=== PATIENT | female | born 1975 | race Caucasian/White ===

== ENCOUNTER 2019-02-12 18:43 | Emergency (ER) | payer SELFPAY ==
[2019-02-12] MEDS ORDERED: Sodium Chloride 0.9% 1000 ML 1,000 ML IV STA ×2 (18:47→19:01)
[2019-02-12] MEDS ORDERED: Hydromorphone 1 mg/ml Ampule IV ONE (18:47)
[2019-02-12] MEDS ORDERED: BENADRYL 50 MG/ML IV ONE ×2 (18:47→19:02)
[2019-02-12] MEDS ORDERED: Hydromorphone 1 mg/ml Ampule ONE (18:58)
[2019-02-12] MEDS ORDERED: BENADRYL 50 MG/ML ONE (18:58)
[2019-02-12] MEDS ORDERED: Sodium Chloride 0.9% 1000 ML 1,000 ML ONE ×2 (18:58→20:09)
--- NOTE | 2019-02-12 19:03 | ERPHSYRPT ---
- History of Present Illness Time Seen by Provider: 02/12/19 18:50 Historian: patient Exam Limitations: no limitations Patient Subjective Stated Complaint: Pt states "For the past two hours I am having severe abdominal pain around my belly button." Triage Nursing Assessment: Pt presented alert and oriented X 3, skin pwd. Pt ambulates with an upright steady gait, able to speak in clear full sentences. Pt in no apparent respiratory distress. Physician History: Sudden onset of periumbilical abdominal pain for the past two hours. No specific trigger. She states he has a history of Crohn's disease. Timing/Duration: today, hour(s) (2) Activities at Onset: none Quality: stabbing Abdominal Pain Onset Location: periumbilical Pain Radiation: RUQ Severity of Pain-Max: severe Severity of Pain-Current: severe Modifying Factors: Improves With: nothing Associated Symptoms: denies symptoms, No back, No chest pain, No diaphoresis, No diarrhea, No fever/chills, No fatigue, No headache, No heartburn, No loss of appetite, No nausea, No neck pain, No rash, No shortness of breath, No syncope, No vomiting, No weakness Previous symptoms: different symptoms (pain sometimes feels this way with Crohn' s Disease), no recent treatment Allergies/Adverse Reactions: clindamycin Allergy (Verified 10/07/14 13:10) iodine Allergy (Verified 02/12/19 20:23) Hives ketorolac [From Toradol] Allergy (Verified 02/12/19 20:23) Penicillins Allergy (Verified 10/07/14 13:10) Home Medications: Dicyclomine HCl [Bentyl] 20 mg PO DAILY 10/07/14 [History] Hx Tetanus, Diphtheria Vaccination/Date Given: No Hx Influenza Vaccination/Date Given: No Hx Pneumococcal Vaccination/Date Given: No Immunizations Up to Date: Yes - Review of Systems Constitutional: No Fever, No Chills, No Fatigue Eyes: No Eye Pain, No Vision Changes Ears, Nose, & Throat: No Mouth Pain, No Mouth Swelling, No Throat Pain, No Painful Swallowing Respiratory: No Cough, No Dyspnea Cardiac: No Chest Pain, No Palpitations, No Syncope Abdominal/Gastrointestinal: Abdominal Pain, No Nausea, No Vomiting, No Hematemesis, No Hematochezia, No Melena Genitourinary Symptoms: No Dysuria, No Frequency, No Hematuria, No Flank Pain Musculoskeletal: No Arthralgias, No Back Pain, No Neck Pain, No Myalgias Skin: No Pruritis Neurological: No Focal Weakness, No Lethargy, No Parasthesia, No Sensory Changes Psychological: No Anxiety Endocrine: No Excessive Sweating Hematologic/Lymphatic: No Easy Bleeding, No Easy Bruising All Other Systems: Reviewed and Negative - Past Medical History Pertinent Past Medical History: Yes GI Medical History: Crohns Disease Other Medical History: ANALI SYNDROME - Past Surgical History Past Surgical History: Yes Female Surgical History: Tubal Ligation Other Surgical History: D/C X4. EXP LAP - Social History Smoking Status: Current every day smoker How long have you smoked: years Exposure to second hand smoke: Yes Drug Use: none Patient Lives Alone: No - Female History Hx Last Menstrual Period: 01/26/2019 Hx Now: No (tubal) - Nursing Vital Signs Nursing Vital Signs: Initial Vital Signs Temperature 97.7 F 02/12/19 18:50 Pulse Rate 127 H 02/12/19 18:50 Respiratory Rate 20 02/12/19 18:50 Blood Pressure 181/109 02/12/19 18:50 O2 Sat by Pulse Oximetry 100 02/12/19 18:50 Pain Scale Pain Intensity 9 - Physical Exam General Appearance: no apparent distress Eye Exam: PERRL/EOMI, eyes nml inspection, No scleral icterus, No pale conjunctivae Ears, Nose, Throat Exam: pharynx normal, moist mucous membranes Neck Exam: normal inspection, non-tender, supple, full range of motion, No meningismus, No Brudzinski, No lymphadenopathy Respiratory Exam: normal breath sounds, lungs clear, airway intact, No chest tenderness, No respiratory distress, No diminished breath sounds, No accessory muscle use, No prolonged expirations, No crackles/rales, No rhonchi, No wheezing , No stridor Cardiovascular Exam: regular rate/rhythm, normal heart sounds, normal peripheral pulses, capillary refill <2 sec Gastrointestinal/Abdomen Exam: soft, normal bowel sounds, No tenderness, No distention, No mass, No guarding, No rebound Extremity Exam: normal inspection, normal range of motion, pelvis stable, No calf tenderness, No patrick's sign, No pedal edema Neurologic Exam: alert, oriented x 3, cooperative, 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 Remaining abdomen and pelvis negative.) Ordered Tests: Active Orders 24 hr Category Date Time Status EKG-ER Only STAT Care 02/12/19 18:47 Active IV Insertion STAT Care 02/12/19 18:47 Active NPO (ED) STAT Care 02/12/19 18:47 Active ABDOMEN AND PELVIS W/0 CONTRAS [CT] Stat Exams 02/12/19 19:32 Taken AMYLASE Stat Lab 02/12/19 19:15 Completed CBC W DIFF Stat Lab 02/12/19 19:15 Completed CMP Stat Lab 02/12/19 19:15 Completed CULTURE,URINE Stat Lab 02/12/19 19:45 Received HCG QUALITATIVE,SERUM Stat Lab 02/12/19 19:15 Completed LIPASE Stat Lab 02/12/19 19:15 Completed Lactic Acid Stat Lab 02/12/19 19:00 Completed Lactic Acid Stat Lab 02/12/19 21:23 Completed TROPONIN Q3H Lab 02/12/19 19:15 Completed TROPONIN Q3H Lab 02/12/19 22:00 Ordered TROPONIN Q3H Lab 02/13/19 01:00 Ordered TROPONIN Q3H Lab 02/13/19 04:00 Ordered TROPONIN Q3H Lab 02/13/19 07:00 Ordered UA W/RFX UR CULTURE Stat Lab 02/12/19 19:45 Completed Urine Triage Profile Stat Lab 02/12/19 19:30 Completed Medication Summary Discontinued Medications Generic Name Dose Route Start Last Admin Trade Name Freq PRN Reason Stop Dose Admin Diphenhydramine HCl 25 mg 02/12/19 18:47 02/12/19 19:05 Benadryl 50 Mg/Ml IV 02/12/19 18:48 Not Given STAT ONE Diphenhydramine HCl Confirm 02/12/19 18:58 Benadryl 50 Mg/Ml Administered 02/12/19 18:59 Dose 50 mg .ROUTE .STK-MED ONE Diphenhydramine HCl 50 mg 02/12/19 19:02 02/12/19 19:06 Benadryl 50 Mg/Ml IV 02/12/19 19:03 50 mg STAT ONE Administration Hydromorphone HCl 1 mg 02/12/19 18:47 02/12/19 19:06 Hydromorphone 1 Mg/Ml Ampule IV 02/12/19 18:48 1 mg STAT ONE Administration Hydromorphone HCl Confirm 02/12/19 18:58 Hydromorphone 1 Mg/Ml Ampule Administered 02/12/19 18:59 Dose 1 mg .ROUTE .STK-MED ONE Sodium Chloride 1,000 mls @ 999 mls/hr 02/12/19 18:47 02/12/19 19:06 Sodium Chloride 0.9% 1000 Ml IV 02/12/19 19:47 999 mls/hr .Q1H1M STA Administration Sodium Chloride Confirm 02/12/19 18:58 Sodium Chloride 0.9% 1000 Ml Administered 02/12/19 18:59 Dose 1,000 mls @ ud .ROUTE .STK-MED ONE Sodium Chloride 1,000 mls @ 999 mls/hr 02/12/19 19:01 02/12/19 20:11 Sodium Chloride 0.9% 1000 Ml IV 02/12/19 20:01 999 mls/hr .Q1H1M STA Administration Sodium Chloride Confirm 02/12/19 20:09 Sodium Chloride 0.9% 1000 Ml Administered 02/12/19 20:10 Dose 1,000 mls @ ud .ROUTE .STK-MED ONE Morphine Sulfate 4 mg 02/12/19 21:05 02/12/19 21:11 Morphine Sulfate 4 Mg Inj IV 02/12/19 21:06 4 mg STAT ONE Administration Morphine Sulfate Confirm 02/12/19 21:09 Morphine Sulfate 4 Mg Inj Administered 02/12/19 21:10 Dose 4 mg .ROUTE .STK-MED ONE Ondansetron HCl 4 mg 02/12/19 21:05 02/12/19 21:11 Zofran 4 Mg/2 Ml Vial IV 02/12/19 21:06 4 mg STAT ONE Administration Ondansetron HCl Confirm 02/12/19 21:09 Zofran 4 Mg/2 Ml Vial Administered 02/12/19 21:10 Dose 4 mg .ROUTE .STK-MED ONE Lab/Rad Data: Laboratory Result Diagrams 02/12/19 19:15 02/12/19 19:15 Laboratory Results 02/12/19 02/12/19 02/12/19 Range/Units 21:23 19:45 19:30 WBC (4.0-10.5) K/mm3 RBC (4.1-5.4) M/mm3 Hgb (12.0-16.0) gm/dl Hct (35-47) % MCV (78-100) fl MCH (26-32) pg MCHC (32-36) g/dl RDW (11.5-14.0) % Plt Count (150-450) K/mm3 MPV (6-9.5) fl Gran % (36.0-66.0) % Eos # (Auto) (0-0.5) Absolute Lymphs (auto) (1.0-4.6) Absolute Monos (auto) (0.0-1.3) Lymphocytes % (24.0-44.0) % Monocytes % (0.0-12.0) % Eosinophils % (0.00-5.0) % Basophils % (0.0-0.4) % Absolute Granulocytes (1.4-6.9) Basophils # (0-0.4) Sodium (137-145) mmol/L Potassium (3.5-5.1) mmol/L Chloride (98-107) mmol/L Carbon Dioxide (22-30) mmol/L Anion Gap (5-15) MEQ/L BUN (7-17) mg/dL Creatinine (0.52-1.04) mg/dL Estimated GFR ML/MIN Glucose (74-106) mg/dL Lactic Acid 1.2 (0.4-2.0) Calcium (8.4-10.2) mg/dL Total Bilirubin (0.2-1.3) mg/dL AST (14-36) U/L ALT (0-35) U/L Alkaline Phosphatase (38-126) U/L Troponin I (0.000-0.034) ng/mL Serum Total Protein (6.3-8.2) g/dL Albumin (3.5-5.0) g/dL Amylase (30-110) U/L Lipase (23-300) U/L Serum , Qual (Negative) Urine Color PINK (YELLOW) Urine Appearance CLOUDY (CLEAR) Urine pH 8.0 (5-6) Ur Specific [place] 1.017 (1.005-1.025) Urine Protein 100 (Negative) Urine Ketones NEGATIVE (NEGATIVE) Urine Blood LARGE (0-5) Ranjith/ul Urine Nitrite NEGATIVE (NEGATIVE) Urine Bilirubin NEGATIVE (NEGATIVE) Urine Urobilinogen NEGATIVE (0-1) mg/dL Ur Leukocyte Esterase TRACE (NEGATIVE) Urine WBC (Auto) 26-50 (0-5) /HPF Urine RBC (Auto) 6-10 (0-2) /HPF U Epithel Cells (Auto) FEW (FEW) /HPF Urine Bacteria (Auto) FEW (NEGATIVE) /HPF Urine Mucus (Auto) SLIGHT (NEGATIVE) /HPF Urine Yeast (Budding) Rare (NEGATIVE) /HPF Urine Culture Reflexed YES (NO) Urine Glucose NEGATIVE (NEGATIVE) mg/dL Urine Opiates Level POSITIVE (NEGATIVE) Ur Methadone NEGATIVE (NEGATIVE) Urine Barbiturates NEGATIVE (NEGATIVE) Ur Phencyclidine (PCP) NEGATIVE (NEGATIVE) Urine Amphetamine NEGATIVE (NEGATIVE) U Benzodiazepine Level POSITIVE (NEGATIVE) Urine Cocaine NEGATIVE (NEGATIVE) Urine Marijuana (THC) NEGATIVE (NEGATIVE) 02/12/19 02/12/19 02/12/19 Range/Units 19:15 19:15 19:15 WBC (4.0-10.5) K/mm3 RBC (4.1-5.4) M/mm3 Hgb (12.0-16.0) gm/dl Hct (35-47) % MCV (78-100) fl MCH (26-32) pg MCHC (32-36) g/dl RDW (11.5-14.0) % Plt Count (150-450) K/mm3 MPV (6-9.5) fl Gran % (36.0-66.0) % Eos # (Auto) (0-0.5) Absolute Lymphs (auto) (1.0-4.6) Absolute Monos (auto) (0.0-1.3) Lymphocytes % (24.0-44.0) % Monocytes % (0.0-12.0) % Eosinophils % (0.00-5.0) % Basophils % (0.0-0.4) % Absolute Granulocytes (1.4-6.9) Basophils # (0-0.4) Sodium 141 (137-145) mmol/L Potassium 3.9 (3.5-5.1) mmol/L Chloride 108 H (98-107) mmol/L Carbon Dioxide 20 L (22-30) mmol/L Anion Gap 17.5 H (5-15) MEQ/L BUN 10 (7-17) mg/dL Creatinine 0.43 L (0.52-1.04) mg/dL Estimated GFR > 60.0 ML/MIN Glucose 103 (74-106) mg/dL Lactic Acid (0.4-2.0) Calcium 9.6 (8.4-10.2) mg/dL Total Bilirubin 0.50 (0.2-1.3) mg/dL AST 86 H (14-36) U/L ALT 63 H (0-35) U/L Alkaline Phosphatase 98 (38-126) U/L Troponin I < 0.012 (0.000-0.034) ng/mL Serum Total Protein 7.7 (6.3-8.2) g/dL Albumin 4.0 (3.5-5.0) g/dL Amylase 101 (30-110) U/L Lipase 199 (23-300) U/L Serum , Qual NEGATIVE (Negative) Urine Color (YELLOW) Urine Appearance (CLEAR) Urine pH (5-6) Ur Specific [place] (1.005-1.025) Urine Protein (Negative) Urine Ketones (NEGATIVE) Urine Blood (0-5) Ranjith/ul Urine Nitrite (NEGATIVE) Urine Bilirubin (NEGATIVE) Urine Urobilinogen (0-1) mg/dL Ur Leukocyte Esterase (NEGATIVE) Urine WBC (Auto) (0-5) /HPF Urine RBC (Auto) (0-2) /HPF U Epithel Cells (Auto) (FEW) /HPF Urine Bacteria (Auto) (NEGATIVE) /HPF Urine Mucus (Auto) (NEGATIVE) /HPF Urine Yeast (Budding) (NEGATIVE) /HPF Urine Culture Reflexed (NO) Urine Glucose (NEGATIVE) mg/dL Urine Opiates Level (NEGATIVE) Ur Methadone (NEGATIVE) Urine Barbiturates (NEGATIVE) Ur Phencyclidine (PCP) (NEGATIVE) Urine Amphetamine (NEGATIVE) U Benzodiazepine Level (NEGATIVE) Urine Cocaine (NEGATIVE) Urine Marijuana (THC) (NEGATIVE) 02/12/19 02/12/19 Range/Units 19:15 19:00 WBC 13.9 H (4.0-10.5) K/mm3 RBC 4.14 (4.1-5.4) M/mm3 Hgb 11.9 L (12.0-16.0) gm/dl Hct 37.8 (35-47) % MCV 91.3 (78-100) fl MCH 28.7 (26-32) pg MCHC 31.5 L (32-36) g/dl RDW 16.3 H (11.5-14.0) % Plt Count 255 (150-450) K/mm3 MPV 9.5 (6-9.5) fl Gran % 68.4 H (36.0-66.0) % Eos # (Auto) 0.31 (0-0.5) Absolute Lymphs (auto) 2.57 (1.0-4.6) Absolute Monos (auto) 1.46 H (0.0-1.3) Lymphocytes % 18.5 L (24.0-44.0) % Monocytes % 10.5 (0.0-12.0) % Eosinophils % 2.2 (0.00-5.0) % Basophils % 0.4 (0.0-0.4) % Absolute Granulocytes 9.48 H (1.4-6.9) Basophils # 0.05 (0-0.4) Sodium (137-145) mmol/L Potassium (3.5-5.1) mmol/L Chloride (98-107) mmol/L Carbon Dioxide (22-30) mmol/L Anion Gap (5-15) MEQ/L BUN (7-17) mg/dL Creatinine (0.52-1.04) mg/dL Estimated GFR ML/MIN Glucose (74-106) mg/dL Lactic Acid 2.8 H (0.4-2.0) Calcium (8.4-10.2) mg/dL Total Bilirubin (0.2-1.3) mg/dL AST (14-36) U/L ALT (0-35) U/L Alkaline Phosphatase (38-126) U/L Troponin I (0.000-0.034) ng/mL Serum Total Protein (6.3-8.2) g/dL Albumin (3.5-5.0) g/dL Amylase (30-110) U/L Lipase (23-300) U/L Serum , Qual (Negative) Urine Color (YELLOW) Urine Appearance (CLEAR) Urine pH (5-6) Ur Specific [place] (1.005-1.025) Urine Protein (Negative) Urine Ketones (NEGATIVE) Urine Blood (0-5) Ranjith/ul Urine Nitrite (NEGATIVE) Urine Bilirubin (NEGATIVE) Urine Urobilinogen (0-1) mg/dL Ur Leukocyte Esterase (NEGATIVE) Urine WBC (Auto) (0-5) /HPF Urine RBC (Auto) (0-2) /HPF U Epithel Cells (Auto) (FEW) /HPF Urine Bacteria (Auto) (NEGATIVE) /HPF Urine Mucus (Auto) (NEGATIVE) /HPF Urine Yeast (Budding) (NEGATIVE) /HPF Urine Culture Reflexed (NO) Urine Glucose (NEGATIVE) mg/dL Urine Opiates Level (NEGATIVE) Ur Methadone (NEGATIVE) Urine Barbiturates (NEGATIVE) Ur Phencyclidine (PCP) (NEGATIVE) Urine Amphetamine (NEGATIVE) U Benzodiazepine Level (NEGATIVE) Urine Cocaine (NEGATIVE) Urine Marijuana (THC) (NEGATIVE) - Progress Progress: improved Progress Note: 02/12/19 21:06 Pain and nausea have returned as symptoms resolved after first doses of pain and anti-emetic. 02/12/19 21:34 Pain has significant improved with no further nausea. Patient had no pain on repeat abdominal examination with negative CVA tenderness bilaterally. Lactic acid improved after IV hydration. Pulse is 98. 02/12/19 21:44 Patient has no specific etiology that requires immediate evaluation by general surgery, gynecologic surgery or any inpatient admission for further monitoring at this time. Patient will be discharged home with follow up in the morning of 02/13/2019 with her physician to determine need for further imaging studies or specialist referral. Counseled pt/family regarding: lab results, diagnosis, need for follow-up, rad results - Departure Departure Disposition: Home Clinical Impression: Periumbilical abdominal pain, Elevated blood pressure reading without diagnosis of hypertension Condition: Good Critical Care Time: No Referrals: NAVJOT LEE [Primary Care Provider] - 02/13/19 Instructions: DASH Diet, Acute Abdomen (Belly Pain), Adult (DC) Additional Instructions: your EKG, lab work, and CT scan of the abdomen and pelvis did not show a reason why you're having a pain around your bellybutton (umbilical area). Return immediately back to the assisted if pain localizes, is worse, new fever, new vomiting, new back pain, or any other concerning signs or symptoms that were not present at the age return visit for immediate reevaluation in the emergency department. It is important to follow up with your physician in the morning of 02/13/2019 to discuss if you need another imaging study such as a colonoscopy to determine the cause of your abdominal pain due to your Crohn's disease history. Prescriptions: Hydroxyzine HCl 25 mg [Atarax 25 mg] 25 - 50 mg PO Q6H PRN PRN #14 tablet PRN Reason: Nausea
[2019-02-12 19:14] LABS: Absolute Neutrophil Ct (ANC) 9.48 (1.4-6.9); BASOPHIL % 0.4 % (0.0-0.4); Basophil (Absolute #) 0.05 (0-0.4); Eosinophil % 2.2 % (0.00-5.0); Eosinophil (Absolute #) 0.31 (0-0.5); Hematocrit 37.8 % (35-47); Hemoglobin 11.9 gm/dl (12.0-16.0); Lymphocyte (Absolute #) 2.57 (1.0-4.6); Lymphocytes % 18.5 % (24.0-44.0); Mean Cell Volume 91.3 fl (78-100); Mean Corpuscular Hemoglobin 28.7 pg (26-32); Mean Corpuscular Hgb Concent. 31.5 g/dl (32-36); Mean Platelet Volume 9.5 fl (6-9.5); Monocyte (Absolute #) 1.46 (0.0-1.3); Monocytes % 10.5 % (0.0-12.0); Neutrophil % 68.4 % (36.0-66.0); Platelet Count 255 K/mm3 (150-450); Red Blood Count 4.14 M/mm3 (4.1-5.4); Red Cell Distribution Width 16.3 % (11.5-14.0); White Blood Count 13.9 K/mm3 (4.0-10.5)
[2019-02-12 19:21] LABS: Lactic Acid 2.8 (0.4-2.0)
[2019-02-12 19:42] LABS: ALKALINE PHOSPHATASE 98 U/L (38-126); AMYLASE 101 U/L (30-110); ANION GAP 17.5 MEQ/L (5-15); BLOOD UREA NITROGEN 10 mg/dL (7-17); CHLORIDE 108 mmol/L (98-107); Calcium 9.6 mg/dL (8.4-10.2); Carbon Dioxide 20 mmol/L (22-30); Creatinine 1 0.43 mg/dL (0.52-1.04); Glucose 103 mg/dL (74-106); LIPASE 199 U/L (23-300); Potassium 3.9 mmol/L (3.5-5.1); SGOT/AST 86 U/L (14-36); SGPT/ALT 63 U/L (0-35); SODIUM 141 mmol/L (137-145); Total Protein 7.7 g/dL (6.3-8.2)
[2019-02-12 20:22] LABS: Amphetamine,Urine NEGATIVE (NEGATIVE); Barbiturate,Urine NEGATIVE (NEGATIVE); Benzodiazepine,Urine POSITIVE (NEGATIVE); Cocaine,Urine NEGATIVE (NEGATIVE); Methadone,Urine NEGATIVE (NEGATIVE); Opiate,Urine POSITIVE (NEGATIVE); PCP,Urine NEGATIVE (NEGATIVE); THC,Urine NEGATIVE (NEGATIVE)
[2019-02-12 20:26] LABS: Appearance CLOUDY (CLEAR); Bacteria FEW /HPF (NEGATIVE); Bilirubin NEGATIVE (NEGATIVE); Blood LARGE Ery/ul (0-5); Epithelial Cells FEW /HPF (FEW); Glucose NEGATIVE (NEGATIVE); Ketones NEGATIVE (NEGATIVE); Leukocyte Esterase TRACE (NEGATIVE); Mucus SLIGHT /HPF (NEGATIVE); Nitrite NEGATIVE (NEGATIVE); Protein,Urine Dip 100 (Negative); Specific Gravity 1.017 (1.005-1.025); Urobilinogen NEGATIVE mg/dL (0-1); WBC 26-50 /HPF (0-5)
[2019-02-12 20:27] LABS: Budding Yeast Rare /HPF (NEGATIVE)
[2019-02-12] MEDS ORDERED: MORPHINE SULFATE 4 MG INJ IV ONE (21:05)
[2019-02-12] MEDS ORDERED: Zofran 4 MG/2 ML VIAL IV ONE (21:05)
[2019-02-12] MEDS ORDERED: Zofran 4 MG/2 ML VIAL ONE (21:09)
[2019-02-12] MEDS ORDERED: MORPHINE SULFATE 4 MG INJ ONE (21:09)
[2019-02-12 22:02] VITALS: BP 139/91; PULSE 98; O2SAT 99
--- NOTE | 2019-02-13 08:38 | XRAY ---
Indication: Midabdomen pain, nausea, hematuria, and elevated WBC. Multiple contiguous axial images obtained through the abdomen and pelvis without contrast as ordered. Comparison: None Lung bases demonstrates mild bilateral dependent atelectasis. No infiltrate or effusion. Heart is not enlarged. Noncontrasted stomach and bowel loops appear nonobstructed. Appendix not seen. 2.5 cm right ovary cyst. Bilateral tubal ligation clips. No free fluid/air. Remaining liver, gallbladder, pancreas, spleen, adrenal glands, kidneys, ureters, bladder, uterus, and aorta appear unremarkable for noncontrast exam. Osseous structures intact. Impression: 1. 2.5 cm right ovary cyst. Pelvic sonogram may yield further information if clinically warranted. 2. Remaining CT abdomen/pelvis without contrast exam is negative. CT DI 11.39
== END 2019-02-12 22:01 | disposition home or self-care (01) ==
LOC: ED 18:43
DX: R10.9 Unspecified abdominal pain (principal); R03.0 Elevated blood-pressure reading, without diagnosis of hypertension; K50.90 Crohn's disease, unspecified, without complications
CPT/HCPCS: 36000; 36415; 74176; 80053; 80307; 81001; 81025; 82150; 83605; 83690; 84484; 85025; 87086; 93005; 96360; 96361; 96374; 96375; 99285; J1170; J1200; J2270; J2405